=== PATIENT | male | born 2000 | race American Indian/Alaskan Native ===

== ENCOUNTER 2021-01-23 00:06 | Emergency (ER) | payer MEDICAID ==
[2021-01-23 01:03] VITALS: BP 123/58
--- NOTE | 2021-01-23 01:16 | Emergency Department Report ---
ED Male HPI - General Chief complaint: Urogenital-Male Stated complaint: ISSUES URINATING Time Seen by Provider: 01/23/21 01:12 Source: patient Mode of arrival: Ambulatory Limitations: No Limitations - History of Present Illness Initial comments: increase urinary frequency for the last 4 days without pain or hematuria. no fever chills or sweats. no nausea or vomiting. No testicular pain or swelling. no new medications. consumes excess caffeine. MD Complaint: dysuria -: Gradual, days(s) (4) Radiation: none Severity scale (0 -10): 0 Improves with: none Worsens with: none denies other symptoms - Related Data Allergies Allergy/AdvReac Type Severity Reaction Status Date / Time No Known Allergies Allergy Verified 01/23/21 01:03 ED Review of Systems ROS: Stated complaint: ISSUES URINATING Other details as noted in HPI Comment: All other systems reviewed and negative ED Past Medical Hx - Past Medical History Previous Medical History?: Yes Hx of Cancer: Yes Additional medical history: leukemia - Surgical History Past Surgical History?: No ED Physical Exam - General Limitations: No Limitations General appearance: alert, in no apparent distress - Head Head exam: Present: atraumatic, normocephalic - Eye Eye exam: Present: normal appearance, PERRL, EOMI Pupils: Present: normal accommodation - ENT ENT exam: Present: normal exam, mucous membranes moist, TM's normal bilaterally - Neck Neck exam: Present: normal inspection, full ROM - Respiratory Respiratory exam: Present: normal lung sounds bilaterally. Absent: respiratory distress - Cardiovascular Cardiovascular Exam: Present: regular rate, normal rhythm. Absent: systolic murmur, diastolic murmur, rubs, gallop - GI/Abdominal GI/Abdominal exam: Present: soft, normal bowel sounds - Rectal Rectal exam: Present: deferred - Extremities Exam Extremities exam: Present: normal inspection - Back Exam Back exam: Present: normal inspection - Neurological Exam Neurological exam: Present: alert, oriented X3 - Psychiatric Psychiatric exam: Present: normal affect, normal mood - Skin Skin exam: Present: warm, dry, intact, normal color. Absent: rash ED Course Vital Signs 01/23/21 01:00 Temperature 98.2 F Pulse Rate 85 Respiratory 18 Rate Blood Pressure 123/58 [Left] O2 Sat by Pulse 100 Oximetry Critical care attestation.: If time is entered above; I have spent that time in minutes in the direct care of this critically ill patient, excluding procedure time. ED Disposition Clinical Impression: Urinary frequency Disposition: 01 HOME / SELF CARE / HOMELESS Is pt being admited?: No Does the pt Need Aspirin: No Condition: Stable Instructions: Urodynamic Testing, Urinary Frequency, Adult Referrals: [facility] [Provider Group] - 3-5 Days
== END 2021-01-23 03:15 | disposition home or self-care (01) ==
LOC: ED 00:06
DX: R35.0 Frequency of micturition (principal); Z85.9 Personal history of malignant neoplasm, unspecified
CPT/HCPCS: 82962; 99282